=== PATIENT | male | born 1955 | race Caucasian/White ===

== ENCOUNTER 2017-06-16 14:11 | Emergency (ER) | payer OTHER ==
[2017-06-16 14:25] VITALS: RESP 18; TEMP 97.5
[2017-06-16] MEDS ORDERED: ONDANSETRON 4 MG/2 ML VIAL IVP ONE (14:59)
--- NOTE | 2017-06-16 15:00 | EDPHY ---
H & P Time Seen by Provider: 06/16/17 14:58 HPI/ROS: CHIEF COMPLAINT: Right flank pain HISTORY OF PRESENT ILLNESS: This patient is a 61 y/o male wit history of kidney stones arriving with his complaining of right flank pain onset two hours ago. His pain began shortly after eating, and he has vomited due to pain. The discomfort began in the right flank and radiates to his right testicle. The pain is severe and the intensity waxes and wanes. His current symptoms are similar to his prior kidney stone episodes. The patient generally gets kidney stones every two years, and was followed by urology at [facility] in [place]. Since moving to [place], he has not followed up with a local urologist. He has not required procedural intervention in the past for his stones, and the pain is usually resolved in 24 hours with pain medication. His last CT was approximately 10 years ago, but subsequent ultrasounds have been positive for stones in the kidney. He denies fever, diarrhea, hematuria, dysuria, chest pain, shortness of breath, or other associated symptoms. REVIEW OF SYSTEMS: A 10 point review of systems was performed and is negative with the exception of the elements mentioned in the history of present illness. Past Medical/Surgical History: 1. Kidney stones Social History: Nonsmoker. . at bedside. Smoking Status: Never smoked Physical Exam: General Appearance: Alert, appears in pain Eyes: Pupils equal and round, no conjunctival pallor or injection ENT, Mouth: Mucous membranes moist Neck: Normal inspection Respiratory: Lungs are clear to auscultation Cardiovascular: Regular rate and rhythm Gastrointestinal: Abdomen is soft and non-tender Back: No CVA tenderness Neurological: A&O, nonfocal, normal gait Skin: Warm and dry, no rash Extremities: Nontender, no pedal edema Psychiatric: Mood and affect normal Constitutional: Initial Vital Signs Temperature (C) 36.4 C 06/16/17 14:23 Heart Rate 58 L 06/16/17 14:23 Respiratory Rate 18 06/16/17 14:23 Blood Pressure 149/90 H 06/16/17 14:23 O2 Sat (%) 95 06/16/17 14:23 O2 Delivery Mode Room Air Allergies/Adverse Reactions: No Known Allergies Allergy (Unverified 06/16/17 14:23) Home Medications: Medication Instructions Recorded Hydrocodone/APAP 5/325 [[place] 1 - 2 tab PO Q4H PRN #10 tab 06/16/17 5/325] Hydrocodone/APAP 5/325 [[place] 1 - 2 tab PO Q4H PRN #15 tab 06/16/17 5/325] Medical Decision Making - Diagnostics Imaging Results: Imaging Impressions Abdomen X-Ray 06/16/17 15:29 Impression: There is no nephrolithiasis observed. Nonetheless, if there is further clinical concern regarding occult renal calculi or obstructive uropathy , unenhanced CT imaging is suggested. Imaging: I viewed and interpreted images myself ED Course/Re-evaluation: 61 y/o male presents with right flank pain radiating towards his groin, typical of his past kidney stone presentation. Exam unremarkable. IV established. Plan to administer 4mg IV Zofran, 15mg IV Toradol, 1L IV NS for symptom relief. Plan for abdominal x-ray to identify stone. The patient gets frequent kidney calculi and is certain his symptoms are consistent with this. Patient is feeling much better after Toradol. 16:10 Reviewed abdominal x-ray. No ureteral calculus visualized. 16:15 Reassessed patient. He states his pain is mild and declines further pain medication at this time. 1640: Reassessed patient, feels much better and wants to go home. Plan to d/c home in good condition with referral to urology. Follow up and return precautions discussed. The patient is comfortable with this plan. Differential Diagnosis: Differential diagnosis includes though it is not limited to appendicitis, cholecystitis, diverticulitis, pyelonephritis, bowel perforation, small bowel obstruction. - Data Points Medications Given: Discontinued Medications Sodium Chloride (Ns) 1,000 mls @ 0 mls/hr IV EDNOW ONE; Wide Open PRN Reason: Protocol Stop: 06/16/17 15:02 Last Admin: 06/16/17 15:02 Dose: 1,000 mls Ketorolac Tromethamine (Toradol) 15 mg IVP EDNOW ONE Stop: 06/16/17 15:18 Last Admin: 06/16/17 15:20 Dose: 15 mg Ondansetron HCl (Zofran) 4 mg IVP EDNOW ONE Stop: 06/16/17 15:00 Last Admin: 06/16/17 15:01 Dose: 4 mg Departure - Departure Disposition: Home, Routine, Self-Care Clinical Impression: Ureteral calculus, right Condition: Good Instructions: Kidney Stones (ED), How to Strain Your Urine (ED), Flank Pain (ED ) Additional Instructions: 1. Follow up with a urologist. We have referred you our local urologist prisoner classification interviewer. 2. Return to the emergency department for fever, severe pain, inability to urinate or other concerns. 3. Strain urine to try and catch the kidney stone and bring this to the urology appointment. 4. You may take Ibuprofen 600mg every 6-8 hours as needed for food as needed for pain. Referrals: YOAN QUICK [Primary Care Provider] - As per Instructions Galo Ochoa MD [Medical Doctor] - As per Instructions Prescriptions: Hydrocodone/APAP 5/325 [[place] 5/325] 1 - 2 tab PO Q4H PRN #15 tab PRN Reason: Pain, Moderate Hydrocodone/APAP 5/325 [[place] 5/325] 1 - 2 tab PO Q4H PRN #10 tab PRN Reason: Pain, Moderate Report Scribed for: Elise Crouch Report Scribed by: Angelia Hi Date of Report: 06/16/17 Time of Report: 15:00 Physician Review and Approval Statement: 06/16/17 15:00 Portions of this note were transcribed by a medical office technologist. I personally performed a history, physical exam, medical decision making, and confirmed accuracy of information the transcribed note.
[2017-06-16] MEDS ORDERED: NS 1,000 ML IV ONE (15:01)
[2017-06-16] MEDS ORDERED: KETOROLAC 15 MG/1 ML SDV IVP ONE (15:17)
[2017-06-16 16:59] VITALS: BP 120/76; PULSE 54; O2SAT 92
== END 2017-06-16 16:59 | disposition home or self-care (01) ==
DX: N20.1 Calculus of ureter (principal); E86.9 Volume depletion, unspecified
CPT/HCPCS: 96374; J1885; J2405